=== PATIENT | male | born 1970 | race Caucasian/White ===

== ENCOUNTER 2017-01-19 18:32 | Emergency (ER) | payer BC ==
--- NOTE | ~2017-01-19 | CR211 ---
[facility]. [facility] A Service of [facility] & [facility] RADIOLOGY TEXT RESULTS PATIENT: ERIC SHAFFER JR LOCATION: SED : 66 UNIT #: [id number] AGE: [address]: Tameka Toledo APRN SEX: M ORDER DR: [id number] [place] [id number] E MR#: [id number] Acc #: [id number] NAME: ERIC SHAFFER JR : 1970 SEX: M STUDY DATE/TIME: 01/19/2017 18:28 UNIT: SED ROOM: STUDY DESCRIPTION: CR Ribs Uni 2 View W PA Ch Rt Attending Physician: Tameka Toledo A.P.R.N. Ordering Physician: Tameka Arrington A.P.R.N. Primary Care Physician: Primary Care Physician No MEDICAL IMAGING REPORT This report is preliminary unless electronic signature is present. EXAM Chest with right rib series, 01/19/2017 COMPARISON None. CLINICAL HISTORY Right side rib pain after fall 1 week ago at home. FINDINGS An accompanying chest radiograph shows no acute disease. No infiltrate, effusion, pneumothorax or suspicious nodule. Right rib series is negative. IMPRESSION Negative chest and right rib series. Dictated by... Mj Vargas M.D. THIS IS AN ELECTRONICALLY VERIFIED REPORT Mj Vargas M.D. at 01/20/2017 3:55 PM TIP/cait TD: 01/19/2017 22:43 JOB #: [id number] MEDICAL IMAGING REPORT Page 1 of 1
[~2017-01-19 18:32] MED LIST: HYDROCORTISONE28 GM TOP; TYLENOL COLD SE1 TAB PO
== END 2017-01-19 19:03 | disposition home or self-care (01) ==
LOC: SED 18:32
DX: S29.9XXA Unspecified injury of thorax, initial encounter (principal); E11.9 Type 2 diabetes mellitus without complications; F17.210 Nicotine dependence, cigarettes, uncomplicated; Z88.7 Allergy status to serum and vaccine; W01.0XXA Fall on same level from slipping, tripping and stumbling without subsequent striking against object, initial encounter; Y92.009 Unspecified place in unspecified non-institutional (private) residence as the place of occurrence of the external cause
CPT/HCPCS: 71101; 99284